=== PATIENT | male | born 1950 | race Caucasian/White ===

== ENCOUNTER → 2018-03-21 | Outpatient (CLI) | payer MEDICARE, OTHER ==
--- NOTE | 2018-03-21 16:01 | CT ---
EXAM DESCRIPTION: Abdomen w/Contrast CLINICAL HISTORY: 68 years Male, ABDOMINAL PAIN especially at the right diaphragm. COMPARISON: CT abdomen pelvis dated July 07, 2013. Technique: Contiguous 5 mm axial images are obtained from above the level of diaphragm to below the kidney level with the use of oral and intravenous contrast material. Reformatted coronal and sagittal images also obtained. FINDINGS: The visualized lower thorax appears grossly unremarkable with no pleural or pericardial effusion. Pleural thickening noted along the left lung base. The liver appears grossly unremarkable with no focal mass lesion or intrahepatic ductal dilatation. The gallbladder is minimally distended and appears grossly unremarkable with no pericholecystic fat stranding or fluid. The spleen, pancreas and both adrenal glands appear grossly unremarkable. Both kidneys enhance symmetrically with no evidence of hydronephrosis, nephrolithiasis, hydroureter or perinephric stranding. A 4.2 cm exophytic cystic lesion in the lower pole of left kidney most consistent with a simple cyst. The distal esophagus and the stomach appear grossly unremarkable. The visualized small and large bowel loops appear grossly unremarkable. Diverticula are noted throughout the visualized colon with no evidence of diverticulitis. The appendix is not well-visualized, however no surrounding inflammatory changes noted in the right lower quadrant to suggest acute appendicitis. No free intraperitoneal air or fluid. Few prominent retroperitoneal lymph nodes noted, the largest left para-aortic node measuring up to 1 cm likely reactive. Mild atherosclerotic calcifications of the abdominal aorta seen. Review of the bone windows demonstrate severe degenerative changes predominantly involving L4-L5 and L5-S1 with intervertebral disc space narrowing and vacuum disc phenomenon. IMPRESSION: 1. No acute intra-abdominal process. 2. Severe degenerative changes predominantly involving L4-L5 and L5-S1. This exam was performed according to our departmental dose-optimization program, which includes automated exposure control, adjustment of the mA and/or kV according to patient size and/or use of iterative reconstruction technique. Electronically signed by: Jovani Cordova MD 03/21/2018 3:59 PM CDT
== END ==
LOC: RAD 14:33
PROVIDERS: ATTEND General Practice
DX: R10.9 Unspecified abdominal pain (principal)

== ENCOUNTER → 2018-06-05 | Outpatient (CLI) | payer MEDICARE, OTHER ==
--- NOTE | 2018-06-05 16:14 | NM ---
EXAM DESCRIPTION: Hepatobiliary w/CCK: Nuclear Medicine. CLINICAL HISTORY: RT QUAD PAIN COMPARISON: Abdominal CT scan with contrast 03/21/2018. TECHNIQUE: Patient was given 7.6 mCi of technetium 99 M mebrofenin radiopharmaceutical IV. Anterior gamma camera images were obtained of the right upper quadrant at 1 minute intervals for one hour . The patient was then given 8 ounces of nutrition supplement, equivalent to a 11 g fatty meal..Gallbladder ejection fraction was evaluated by measuring diminishing radioactivity in the gallbladder, over 30 min interval. FINDINGS: Prompt visualization of the entire liver after administration of the radiopharmaceutical IV. Minimal attenuation of the junction of the right and left hepatic lobes. Prompt visualization of intrahepatic ducts, and gallbladder and extrahepatic ducts and intestine were seen in a timely manner. After fatty meal was ingested, patient had a small amount of right upper quadrant pain without nausea. Activity increased after fatty meal was ingested with peak activity at 8 minutes and 25 minutes after ingestion. More activity was noted in the gallbladder after 30 minutes interval then initially.. IMPRESSION: 1. No intrahepatic or extrahepatic biliary obstruction. Timely visualization of the gallbladder. 2. Gallbladder ejection fraction is 0 indicating a markedly dysfunctional gallbladder. This could be due to chronic cholecystitis or gallbladder dyskinesia. Electronically signed by: Pavel Grande MD 06/05/2018 4:13 PM CDT
== END ==
LOC: NM 10:09
PROVIDERS: ATTEND Surgery
DX: R10.11 Right upper quadrant pain (principal)
CPT/HCPCS: 78227; A9537